=== PATIENT | male | born 1995 | race African-American/Black ===

== ENCOUNTER 2017-09-16 23:01 | Emergency (ER) | payer SELFPAY ==
[~2017-09-16] VITALS: Ht 175.3 cm; Wt 98.9 kg
[2017-09-17 00:30] VITALS: BP 147/78
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
== END 2017-09-17 02:07 | disposition home or self-care (01) ==
LOC: ER 23:01
DX: S09.8XXA Other specified injuries of head, initial encounter (principal); S33.5XXA Sprain of ligaments of lumbar spine, initial encounter; M54.2 Cervicalgia; V89.2XXA Person injured in unspecified motor-vehicle accident, traffic, initial encounter; Y93.89 Activity, other specified; Y99.8 Other external cause status; Y92.410 Unspecified street and highway as the place of occurrence of the external cause
CPT/HCPCS: 70450; 72072; 72100; 72125; 99284-25